=== PATIENT | female | born 1970 | race Caucasian/White ===

== ENCOUNTER 2019-01-09 12:35 | Emergency (ER) | payer SELFPAY ==
[~2019-01-09] VITALS: Ht 172.7 cm; Wt 77.1 kg
[~2019-01-09 12:35] MED LIST: VIC PO
[2019-01-09 12:45] VITALS: BP 145/86
--- NOTE | 2019-01-09 12:49 | NUR ---
PATIENT WHEELCHAIR ASSISTED TO BED 9
--- NOTE | 2019-01-09 13:01 | NUR ---
48F C/O INJURED LEFT ANKLE TODAY S/P INJURY WITH SCOOTER. FELL ON GROUND, TWISTED ANKLE, ABRASION TO LEFT LATERAL ANKLE. STATES NUMBNESS TO PLANTAR SURFACE OF LEFT FOOT AND DECREASED SENSATION. +2 PEDAL PULSE HX--DENIES RX--NONE
--- NOTE | 2019-01-09 13:03 | NUR ---
XRAY AT BEDSIDE.
[2019-01-09] MEDS ORDERED: KETOROLAC 30 MG/ML VIAL IM ONE (13:45)
--- NOTE | 2019-01-09 14:51 | NUR ---
Patient discharged with v/s stable. Written and verbal after care instructions given and explained. Patient alert, oriented and verbalized understanding of instructions. Ambulatory with steady gait. All questions addressed prior to discharge. ID band removed. Patient advised to follow up with PMD. Rx of NORCO & NAPROSYN given. Patient educated on indication of medication including possible reaction and side effects. Opportunity to ask questions provided and answered.
[2019-01-09 14:52] VITALS: BP 137/69
--- NOTE | 2019-01-09 14:52 | NUR ---
Patient discharged with v/s stable. Written and verbal after care instructions given and explained. Patient alert, oriented and verbalized understanding of instructions. Ambulatory with CRUTCHES. All questions addressed prior to discharge. ID band removed. Patient advised to follow up with PMD. Rx of NORCO & NAPROSYN given. Patient educated on indication of medication including possible reaction and side effects. Opportunity to ask questions provided and answered.
== END 2019-01-09 14:52 | disposition home or self-care (01) ==
LOC: MED 12:35
DX: S93.402A Sprain of unspecified ligament of left ankle, initial encounter (principal); Z88.0 Allergy status to penicillin; Z79.899 Other long term (current) drug therapy; Z98.890 Other specified postprocedural states; W05.2XXA Fall from non-moving motorized mobility scooter, initial encounter; Y93.89 Activity, other specified; Y92.89 Other specified places as the place of occurrence of the external cause; Y99.8 Other external cause status
CPT/HCPCS: 73610; 96372; 99283; J1885; Q0092

== ENCOUNTER 2019-08-27 05:33 | Emergency (ER) | payer SELFPAY | END 2019-08-27 05:48 | disposition left against medical advice (07) | LOC: MED 05:33 | DX: R10.9 Unspecified abdominal pain (principal); R11.10 Vomiting, unspecified; Z53.21 Procedure and treatment not carried out due to patient leaving prior to being seen by health care provider ==

== ENCOUNTER 2020-12-13 01:52 | Emergency (ER) | payer MEDICAID ==
[~2020-12-13] VITALS: Ht 172.7 cm; Wt 79.4 kg
[2020-12-13 02:00] VITALS: BP 140/97
--- NOTE | 2020-12-13 02:00 | NUR ---
TO BED VIA WHEELCHAIR
--- NOTE | 2020-12-13 02:05 | NUR ---
RECEIVED IN BED 6 WITH C/O RIGHT MID BACK PAIN SINCE 2299. STATES WAS ON STEP STOOL AND FELL OFF, HITTING BACK
--- NOTE | 2020-12-13 02:07 | NUR ---
Leeann donald in ED - 12/13/20 at 0212 by [place] RECEIVED IN BED 6 WITH C/O RIGHT MID BACK PAIN SINCE 2299. DENIES TRAUMA
--- NOTE | 2020-12-13 02:08 | NUR ---
Leeann donald in [facility], [place] - 12/13/20 at 0208 by VALENTINE PT TAKEN TO BED 6
--- NOTE | 2020-12-13 02:12 | NUR ---
Dr. Long examining patient.
--- NOTE | 2020-12-13 03:39 | NUR ---
PATIENT TAKEN TO CT VIA W/C.
--- NOTE | 2020-12-13 03:48 | NUR ---
PT RETURN FROM CT
[2020-12-13] MEDS ORDERED: MORPHINE SULFATE 4 MG/ML SYR IM ONE (03:50)
[2020-12-13] MEDS ORDERED: MORPHINE SULFATE 4 MG/ML SYR ONE (03:52)
--- NOTE | 2020-12-13 03:53 | NUR ---
MEDICATED ASORDERED FOR PAIN
[2020-12-13 05:00] VITALS: BP 138/84
[2020-12-13] MEDS ORDERED: DOCU-299 PO (05:11)
[2020-12-13] MEDS ORDERED: ACET-5629 PO (05:11)
[2020-12-13] MEDS ORDERED: IBUP-2213 PO (05:11)
--- NOTE | 2020-12-13 05:35 | NUR ---
Patient discharged with v/s stable. Written and verbal after care instructions given and explained. Patient alert, oriented and verbalized understanding of instructions. Ambulatory with steady gait. All questions addressed prior to discharge. ID band removed. Patient advised to follow up with PMD. Rx of PERCOCET, DSS, IBUPROFEN given. Patient educated on indication of medication including possible reaction and side effects. Opportunity to ask questions provided and answered.
== END 2020-12-13 05:35 | disposition home or self-care (01) ==
LOC: MED 01:52
DX: S22.31XA Fracture of one rib, right side, initial encounter for closed fracture (principal); Z88.0 Allergy status to penicillin; Z79.899 Other long term (current) drug therapy; Z98.890 Other specified postprocedural states; W08.XXXA Fall from other furniture, initial encounter; Y93.89 Activity, other specified; Y92.89 Other specified places as the place of occurrence of the external cause; Y99.8 Other external cause status
CPT/HCPCS: 71101; 71250; 96372; 99284; J2270

== ENCOUNTER 2021-03-09 23:15 | Emergency (ER) | payer MEDICAID ==
[~2021-03-09] VITALS: Ht 172.7 cm; Wt 81.6 kg
[~2021-03-09 23:15] MED LIST changes: +ACET-5629 PO; +DOCU-299 PO; +IBUP-2213 PO
--- NOTE | 2021-03-09 23:16 | NUR ---
PT CM VIA GURNEY TO BED 12.
[2021-03-09] MEDS ORDERED: ONDANSETRON 4 MG/2 ML VIAL IVP ONE (23:35)
[2021-03-09] MEDS ORDERED: NACL 0.9% 1,000 ML IV ONE (23:35)
[2021-03-10 00:04] LABS: EOSINOPHILS # (AUTO) 0.1 K/uL (0-0.4); EOSINOPHILS % (AUTO) 2.7 % (0.0-4.0); HEMATOCRIT 39.4 % (36-48); HEMOGLOBIN 13.3 g/dL (12.0-16.0); LYMPHOCYTES # (AUTO) 2.1 K/uL (2.5-16.5); LYMPHOCYTES % (AUTO) 43.4 % (20.5-51.1); MEAN CORPUSCULAR HEMOGLOBIN 30 pg (27-31); MEAN CORPUSCULAR HGB CONC 34 g/dL (33-37); MEAN CORPUSCULAR VOLUME 88.9 fL (80-94); MONOCYTES # (AUTO) 0.3 K/uL (0.8-1.0); MONOCYTES % (AUTO) 5.8 % (1.7-9.3); NEUTROPHILS # (AUTO) 2.3 K/uL (1.8-7.7); NEUTROPHILS % (AUTO) 47.1 % (42.2-75.2); PLATELET COUNT (AUTO) 210 K/uL (140-450); RED BLOOD CELL COUNT(AUTO) 4.44 MIL/uL (4.20-5.40); WHITE BLOOD COUNT (AUTO) 4.8 K/uL (4.8-10.8)
[2021-03-10 00:12] LABS: BARBITURATE, URINE NEGATIVE ng/ml (NEG <=200); BENZODIAZEPINE, URINE NEGATIVE ng/mL (NEG <=200); CANNABINOID, URINE POSITIVE ng/mL (NEG <=50); COCAINE, URINE NEGATIVE ng/mL (NEG <=300); OPIATE, URINE NEGATIVE ng/mL (NEG <=2000); PHENCYCLIDINE SCREEN,URINE NEGATIVE ng/mL (NEG <=25)
[2021-03-10 00:18] LABS: ALBUMIN 3.8 g/dL (3.4-5.0); ANION GAP 16.6 (8-16); CARBON DIOXIDE 26.9 mmol/L (21-32); CREATININE 0.8 mg/dL (0.6-1.3); POTASSIUM 3.5 mmol/L (3.5-5.1); TOTAL BILIRUBIN 0.2 mg/dL (0.0-1.0)
--- NOTE | 2021-03-10 01:42 | NUR ---
COVERING PRIMARY NURSE FOR LUNCH RELIEF. PT SEEN WITH EYES CLOSED. VISIBLE CHEST RISE AND FALL NOTED. NO EPISODES OF VOMITTING. VSS. PT APPEARS TO BE IN NO DISTRESS. BED IN LOWEST POSITION. WILL CONTINUE TO MONITOR.
--- NOTE | 2021-03-10 02:23 | NUR ---
PATIENT SLEEPING COMFORTABLE NO COMPLAINIG OF PAIN OR NAUSEAS VITAL SIGNS IN NORMAL LIMITS //DiCaprio RN
[2021-03-10 03:28] LABS: ANION GAP 13.7 (8-16); CARBON DIOXIDE 28.1 mmol/L (21-32); CREATININE 0.7 mg/dL (0.6-1.3); POTASSIUM 3.8 mmol/L (3.5-5.1)
[2021-03-10] MEDS ORDERED: ONDA-188 PO (03:50)
[2021-03-10 03:52] VITALS: BP 128/72
--- NOTE | 2021-03-10 03:54 | NUR ---
PATIENT ALERT ORIENTED STABLE NOT COMPLAINING OF PAIN VITALS SIGNS IN NORMAL LIMITS DC INSTRUCTION GAVE AND EXPLAINED WE RECOMENDED TO COMING BACK TO THE HOSPITALS IF THE SYMPTOMS GET WORSE OR NOT IMPROVING //Leonel ROCK
== END 2021-03-10 04:10 | disposition home or self-care (01) ==
LOC: MED 23:15
DX: F10.129 Alcohol abuse with intoxication, unspecified (principal); E87.8 Other disorders of electrolyte and fluid balance, not elsewhere classified; E87.0 Hyperosmolality and hypernatremia; F15.10 Other stimulant abuse, uncomplicated; F12.10 Cannabis abuse, uncomplicated; Z79.899 Other long term (current) drug therapy; Z79.1 Long term (current) use of non-steroidal anti-inflammatories (NSAID); Z79.891 Long term (current) use of opiate analgesic; Z88.0 Allergy status to penicillin
CPT/HCPCS: 36415; 80048; 80053; 80305; 83690; 85025; 93005; 96361; 96374; 99284; G0482; J2405; J7030

== ENCOUNTER 2022-07-15 01:30 | Emergency (ER) | payer MEDICAID ==
[~2022-07-15] VITALS: Ht 172.7 cm; Wt 90.7 kg
[~2022-07-15 01:30] MED LIST changes: +ONDA-188 PO
[2022-07-15 01:35] VITALS: BP 150/90
[2022-07-15 01:47] VITALS: BP 150/90
--- NOTE | 2022-07-15 01:47 | NUR ---
TO THE LOBBY
--- NOTE | 2022-07-15 02:20 | NUR ---
NOTIFIED BY ADMIT TRAM INSPECTOR THAT PT LEFT FACILITY AT THIS TIME. PT LWBS
[2022-07-15] MEDS ORDERED: TETRACAINE HCL/PF 0.5% OPTH 4 ML BTL OP ONE (03:15)
== END 2022-07-15 02:20 | disposition left against medical advice (07) ==
LOC: MED 01:30
DX: T15.81XA Foreign body in other and multiple parts of external eye, right eye, initial encounter (principal); Z53.21 Procedure and treatment not carried out due to patient leaving prior to being seen by health care provider; X58.XXXA Exposure to other specified factors, initial encounter; Y92.89 Other specified places as the place of occurrence of the external cause; Y93.89 Activity, other specified; Y99.8 Other external cause status
CPT/HCPCS: 99281

== ENCOUNTER 2023-09-09 16:31 | Emergency (ER) | payer MEDICAID ==
[~2023-09-09] VITALS: Ht 172.7 cm; Wt 86.2 kg
[2023-09-09 16:34] VITALS: BP 164/97; PULSE 85; RESP 18; TEMP 97.1; O2SAT 99
[2023-09-09] MEDS: METOCLOPRAMIDE 10 MG/2 ML INJ VIAL IM ONE (17:14)
[2023-09-09] MEDS: KETOROLAC 30 MG/ML VIAL IM ONE (17:15)
[2023-09-09 17:30] VITALS: BP 145/82; PULSE 88; RESP 16; TEMP 98; O2SAT 99
== END 2023-09-09 17:30 | disposition home or self-care (01) ==
LOC: MED 16:31
DX: H53.8 Other visual disturbances (principal); Z79.899 Other long term (current) drug therapy
CPT/HCPCS: 96372; 99284; J1885; J2765